=== PATIENT | female | born 1975 | race Caucasian/White ===

== ENCOUNTER 2016-10-27 09:43 | Emergency (ER) | payer OTHER ==
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
[2016-10-27 10:38] VITALS: BP 96/74
== END 2016-10-27 10:50 | disposition home or self-care (01) ==
LOC: ED 09:43
DX: Z20.2 Contact with and (suspected) exposure to infections with a predominantly sexual mode of transmission (principal); R46.89 Other symptoms and signs involving appearance and behavior
CPT/HCPCS: 99283

== ENCOUNTER 2017-09-16 08:00 | Emergency (ER) | payer OTHER ==
[2017-09-16 08:17] VITALS: BP 103/66
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
[2017-09-16] MEDS: SILVER SULFADIAZINE 25 GM 1 APPL TUBE TP ONE (08:45)
== END 2017-09-16 09:00 | disposition home or self-care (01) ==
LOC: ED 08:00
DX: T24.201A Burn of second degree of unspecified site of right lower limb, except ankle and foot, initial encounter (principal); X11.0XXA Contact with hot water in bath or tub, initial encounter; Y92.9 Unspecified place or not applicable; Y93.G3 Activity, cooking and baking; Y99.9 Unspecified external cause status
CPT/HCPCS: 99282